=== PATIENT | male | born 1985 | race Hispanic/Latino ===

== ENCOUNTER → 2017-04-18 | Outpatient (REF) | payer OTHER ==
[2017-04-18 14:59] LABS: SEMEN APPEARANCE OPAQUE (OPAQUE)
[2017-04-18 15:00] LABS: % NORMAL FORMS 14 % (>=4); IMMOTILITY 31 %; NON PROGRESSIVE MOTILITY (c) 11 %; PROGRESSIVE MOTILITY (a) 58 % (>=32); SEMEN VISCOSITY VISCOUS (LIQUID); SEMEN pH 8.5 (7.0-8.0); SPERM ABNORMAL FORMS WBC'S NOTED; TOTAL MOTILITY 69 % (>=40); WBC CONCENTRATION >1 M/ml (<=1 M/ml)
[2017-04-18 15:01] LABS: TOTAL FUNCTIONAL 14.8 M/Ejac.; TOTAL PROGRESSIVE SPERM 49.4 M/Ejac.
== END ==
LOC: M LAB REF 14:45
DX: N46.8 Other male infertility (principal)